=== PATIENT | male | born 1960 | race Caucasian/White ===

== ENCOUNTER 2016-06-30 09:31 | Emergency (ER) | payer BC, OTHER ==
[~2016-06-30] VITALS: Ht 175.3 cm; Wt 115.0 kg
[2016-06-30 09:41] VITALS: BP_SYST 129; BP_SYST 157; BP_DIAS 84; BP_DIAS 93; PULSE 102; PULSE 90; RESP 16; TEMP 97.5; TEMP 99.9; O2SAT 100; O2SAT 98
[2016-06-30] MEDS ORDERED: LISI-519 PO (10:47)
[2016-06-30] MEDS ORDERED: METF500T PO (10:47)
[2016-06-30] MEDS ORDERED: CITA10TA4 PO (10:47)
[2016-06-30] MEDS ORDERED: LIDOCAINE HCL 1% 50 ML VIAL INFIL ONE (11:45)
[2016-06-30] MEDS ORDERED: MORPHINE SULFATE 4 MG/ML INJ IV PUSH ONE (11:45)
[2016-06-30] MEDS ORDERED: CLINDAMYCIN INJ 600 MG in SODIUM CHLORIDE 0.9% INJ 100 ML IV ONE (11:45)
[2016-06-30 11:50] LABS: BLOOD, URINE NEG (NEG); GLUCOSE,URINE 100 mg/dL (NEG); KETONE, URINE NEG (NEG); NITRITE,URINE NEG (NEG)
[2016-06-30 11:55] LABS: METHOD OF COLLECTION CLEAN CATCH; URINE COLOR YELLOW (YELLW/STRAW)
[2016-06-30 11:56] LABS: MUCUS URINE FEW /lpf (OCC); RBC, URINE 0-3 /hpf (0-3); SQUAMOUS EPITHELIAL CELL URINE 0-5 /hpf (0-5); WBC, URINE 0-2 /hpf (0-5)
[2016-06-30 11:57] LABS: COMMENT (UR) CULT NOT INDICATED; CULTURE IF INDICATED CULT NOT INDICATED
[2016-06-30 12:05] LABS: AUTOMATED NEUTROPHIL # 8.4 TH/MM3 (1.8-7.7); BASOPHIL % 0.4 % (0.0-2.0); EOSINOPHIL # 0.2 TH/MM3 (0-0.4); EOSINOPHIL % 2.2 % (0.0-4.0); HEMATOCRIT 37.7 % (39.0-51.0); HEMO FLAGS DIFF FINAL; LYMPH % 15.2 % (9.0-44.0); LYMPHOCYTE # 1.7 TH/MM3 (1.0-4.8); MEAN CELL VOLUME 94.7 FL (80.0-100.0); MEAN CORPUSCULAR HEMOGLOBIN 33.3 PG (27.0-34.0); MEAN CORPUSCULAR HGB CONC 35.1 % (32.0-36.0); NEUT % 74.2 % (16.0-70.0); PLATELET COUNT 208 TH/MM3 (150-450); RED BLOOD COUNT 3.98 MIL/MM3 (4.50-5.90); RED CELL DISTRIBUTION WIDTH 10.8 % (11.6-17.2); WHITE BLOOD COUNT 11.2 TH/MM3 (4.0-11.0)
--- NOTE | 2016-06-30 12:11 | RADHPO ---
EXAM DATE/TIME: 06/30/2016 11:44 [place] COMPARISON: No previous studies available for comparison. INDICATIONS : Possible splinter right 3rd finger , swollen, red, painfull finger MEDICAL HISTORY : None. SURGICAL HISTORY : None. ENCOUNTER: Initial ACUITY: 3 days PAIN SCORE: 6/10 LOCATION: Right middle finger FINDINGS: There is soft tissue swelling without radiopaque foreign body or fracture. CONCLUSION: Soft tissue swelling as described above. Gildardo Aguirre MD FACR on June 30, 2016 at 12:08 Board Certified Radiologist. This report was verified electronically.
[2016-06-30 12:13] LABS: POTASSIUM 4.2 MEQ/L (3.5-5.1)
[2016-06-30 12:16] LABS: BICARBONATE 26.9 MEQ/L (21.0-32.0)
[2016-06-30 12:50] VITALS: BP 148/88; PULSE 77; RESP 18; O2SAT 99
--- NOTE | 2016-06-30 12:53 | PD ---
HPI Chief Complaint: Skin Problem Time Seen by Provider: 11:28 Travel History International Travel<30 days: No Contact w/Intl Traveler<30days: No Traveled to known affect area: No History of Present Illness HPI Patient is a 55 year old male who comes in complaining of multiple skin lesions. He says for the past week since having a colonoscopy is noted small boils around his buttocks and in his groin area. He also has severe irritation between his butt cheeks. He also is complaining of pain and swelling to his right third finger. He says a few days ago he got a splinter at work, and he believes he dug it out. However since then he has had redness and swelling to the area. He has pain with flexion of his finger, but is able to flex his finger. He says he had a temperature of 99 the other day, but ibuprofen took it down. He has history of diabetes, but says his hemoglobin A1c has been around 6. He denies any chest pain, shortness of breath, abdominal pain. PFSH Past Medical History Hx Anticoagulant Therapy: Yes (type 2) Anxiety: Yes Cardiovascular Problems: Yes (htn on meds) Diabetes: Yes Patient Takes Glucophage: Yes Tetanus Vaccination: > 5 Years Influenza Vaccination: Yes ?: Not LMP: on birthcontrol, continious menses Past Surgical History Abdominal Surgery: Yes (HERNIA) Social History Alcohol Use: Yes Tobacco Use: No Substance Use: No Allergies-Medications (Allergen,Severity, Reaction): Coded Allergies: No Known Allergies (Unverified , 06/30/16) Reported Meds & Prescriptions Reported Meds & Active Scripts Active Lortab (Hydrocodone-Acetaminophen) 5-325 Mg Tab 1 Tab PO Q6H PRN Clindamycin (Clindamycin HCl) 150 Mg Cap 450 Mg PO Q6H 10 Days Reported Citalopram (Citalopram Hydrobromide) 10 Mg Tab 10 Mg PO DAILY Lisinopril 5 Mg Tab 5 Mg PO DAILY Metformin (Metformin HCl) 500 Mg Tab 500 Mg PO DAILY With a meal Review of Systems Except as stated in HPI: all other systems reviewed are Neg General / Constitutional: Positive: Fever, No: Chills HENT: No: Headaches, Lightheadedness Cardiovascular: No: Chest Pain or Discomfort Respiratory: No: Shortness of Breath Gastrointestinal: No: Nausea, Vomiting, Abdominal Pain Musculoskeletal: No: Myalgias, Edema Skin: Positive Lesions Neurologic: No: Weakness, Dizziness Physical Exam Narrative GENERAL: Awake and alert in no acute distress. SKIN: Warm and dry. Several small areas of erythema around the buttocks and in the groin. No areas of fluctuance. Right third finger with fluctuance of the distal finger pulp. Distal portion of the finger is erythematous and edematous. HEAD: Atraumatic. Normocephalic. EYES: Pupils equal and round. No scleral icterus. ENT: Mucous membranes pink and moist. NECK: Trachea midline. No JVD. CARDIOVASCULAR: Regular rate and rhythm. No murmur appreciated. RESPIRATORY: No accessory muscle use. Clear to auscultation. Breath sounds equal bilaterally. MUSCULOSKELETAL: No obvious deformities. No clubbing. No cyanosis. Able to fully extend and flex the fingers of his right hand. NEUROLOGICAL: Awake and alert. No obvious cranial nerve deficits. Motor grossly within normal limits. Normal speech. PSYCHIATRIC: Appropriate mood and affect; insight and judgment normal. Data Data Last Documented VS Vital Signs Date Time Temp Pulse Resp B/P Pulse Ox O2 Delivery O2 Flow Rate FiO2 06/30/16 12:50 77 18 148/88 99 Room Air 06/30/16 09:41 97.5 Orders Complete Blood Count With Diff (06/30/16 11:34) Urinalysis - C+S If Indicated (06/30/16 11:34) Basic Metabolic Panel (Bmp) (06/30/16 11:34) Clindamycin Inj (Cleocin Inj) (06/30/16 11:45) Morphine Inj (Morphine Inj) (06/30/16 11:45) Lidocaine 1% Inj (50 Ml) (Xylocaine 1% I (06/30/16 11:45) Hand, Complete ([id number]) (06/30/16 ) Labs Laboratory Tests Test 06/30/16 06/30/16 11:45 11:55 Urine Collection Type CLEAN CATCH Urine Color YELLOW Urine Turbidity CLEAR Urine pH 6.0 Urine Specific [place] 1.018 Urine Protein TRACE mg/dL Urine Glucose (UA) 100 mg/dL Urine Ketones NEG mg/dL Urine Occult Blood NEG Urine Nitrite NEG Urine Bilirubin NEG Urine Leukocyte Esterase NEG Urine RBC 0-3 /hpf Urine WBC 0-2 /hpf Urine Squamous Epithelial 0-5 /hpf Cells Urine Mucus FEW /lpf Urine Sperm FEW Microscopic Urinalysis Comment CULT NOT INDICATED Urine Collection Time 11:45 White Blood Count 11.2 TH/MM3 Red Blood Count 3.98 MIL/MM3 Hemoglobin 13.2 GM/DL Hematocrit 37.7 % Mean Corpuscular Volume 94.7 FL Mean Corpuscular Hemoglobin 33.3 PG Mean Corpuscular Hemoglobin 35.1 % Concent Red Cell Distribution Width 10.8 % Platelet Count 208 TH/MM3 Mean Platelet Volume 7.6 FL Neutrophils (%) (Auto) 74.2 % Lymphocytes (%) (Auto) 15.2 % Monocytes (%) (Auto) 8.0 % Eosinophils (%) (Auto) 2.2 % Basophils (%) (Auto) 0.4 % Neutrophils # (Auto) 8.4 TH/MM3 Lymphocytes # (Auto) 1.7 TH/MM3 Monocytes # (Auto) 0.9 TH/MM3 Eosinophils # (Auto) 0.2 TH/MM3 Basophils # (Auto) 0.0 TH/MM3 CBC Comment DIFF FINAL Differential Comment Sodium Level 137 MEQ/L Potassium Level 4.2 MEQ/L Chloride Level 100 MEQ/L Carbon Dioxide Level 26.9 MEQ/L Anion Gap 10 MEQ/L Blood Urea Nitrogen 9 MG/DL Creatinine 0.82 MG/DL Estimat Glomerular Filtration 98 ML/MIN Rate Random Glucose 169 MG/DL Calcium Level 8.2 MG/DL [facility] Medical Decision Making Medical Screen Exam Complete: Yes Emergency Medical Condition: Yes Medical Record Reviewed: Yes Differential Diagnosis Flexor tenosynovitis versus feel on versus paronychia versus cellulitis versus hyperglycemia Narrative Course Patient is a 55-year-old male who comes in complaining of several skin lesions. Exam shows small areas of erythema around the buttocks and in the groin, with no defined abscesses present. There is fluctuance to the pulp of the right third finger suggesting felon. Labs sent show no acute abnormalities. Patient given IV fluids, clindamycin, morphine. Abscess to the distal portion of the right third finger drained and bandaged. Patient advised follow-up with hand surgery. Advised to return immediately if the swelling spreads, his symptoms worsen on antibiotics, he has fever. Patient understands and is comfortable with discharge at this time. Advised to return to the ED as needed for any worsening symptoms. Procedures Procedure Narrative Verbal consent obtained. Digital block performed with 1% lidocaine of the right third finger. Incision made to the medial portion of the right distal finger with some expression of pus. Patient also appeared to have slight paronychia. Incision made along the nail with no pus drainage. Finger dressed in sterile dressing. Patient tolerated the procedure well. Diagnosis Primary Impression: Felon of finger Additional Impression: Cellulitis Qualified Code: L03.317 - Cellulitis of buttock Referrals: Bruna Lang MD call for appointment Patient Instructions: Abscess Incision and Drainage (ED), Cellulitis (ED), General Instructions Additional Instructions: Follow up with hand surgery, call Saturday for an appointment. Keep your finger bandaged in a clean, dry dressing. Return immediately for any worsening symptoms. Make sure you take all of your antibiotics. Scripts Hydrocodone-Acetaminophen (Lortab)5-325 Mg Tab1 Tab PO Q6H PRN (PAIN) #12 TAB Ref 0 Prov:Debbie Fierro MD 06/30/16 Clindamycin 150 Mg [id number] Mg PO Q6H 10 Days Ref 0 Prov:Debbie Fierro MD 06/30/16 Disposition: 01 DISCHARGE HOME Condition: Stable Debbie Fierro MD Jun 30, 2016 12:53
[2016-06-30] MEDS ORDERED: CLIN1CAP5 PO (13:00)
[2016-06-30] MEDS ORDERED: HYDR-3533 PO (13:00)
== END 2016-06-30 13:27 | disposition home or self-care (01) ==
LOC: PHED 09:31
DX: L03.011 Cellulitis of right finger (principal); L03.317 Cellulitis of buttock; S60.452A Superficial foreign body of right middle finger, initial encounter; I10 Essential (primary) hypertension; E11.9 Type 2 diabetes mellitus without complications; W45.8XXA Other foreign body or object entering through skin, initial encounter; Y99.0 Civilian activity done for income or pay; Z79.01 Long term (current) use of anticoagulants
CPT/HCPCS: 10060; 73130; 80048; 81001; 85025; 96365; 96375; 99283; J2270